=== PATIENT | male | born 1940 | race Caucasian/White ===

== ENCOUNTER 2017-04-09 15:19 | Inpatient (IN) | payer OTHER ==
--- NOTE | ~2017-04-09 | DS ---
Discharge Summary [facility] [address] [place]. [address] NAME: ANNE UNGER : 38 STATUS : DIS IN PAT#: [id number] AGE: 76 ADM/REG DATE : 04/09/17 MR#: [id number] REPORT SERV DATE: 04/15/17 DICTATED BY: RILEY MCINTOSH DATE: 04/14/17 REPORT STATUS : Draft TRANSCRIBED BY: MODL DATE: 04/14/17 ADMISSION DATE: 04/09/2017 DISCHARGE DATE: 04/14/2017 DISCHARGE DIAGNOSES: 1. Intractable nausea and vomiting. 2. Chest pain likely secondary to lung mass. 3. 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 4. Rheumatoid arthritis. 5. Hypothyroidism. 6. Chronic obstructive pulmonary disease. 7. Gastroesophageal reflux disease. 8. Anxiety. CONSULTANTS: 1. Dr. Lemons of Pulmonology. 2. Dr. Vince Melgar of Oncology. PROCEDURES: CT-guided biopsy of liver lesion on 04/12/2017. HOSPITAL COURSE: This is a 76-year-old gentleman who was admitted to the hospital with intractable nausea and vomiting who was also found to have a lung mass as well as liver mass. For details, please refer to excellent H and P dictated by Dr. Arenas. In summary, the patient clinically improved over the first couple of days of hospital stay and the main issue became liver mass and a lung mass. It was felt that the patient probably had primary lung mass with metastatic disease to the liver. The patient was seen by Pulmonology for potential bronchoscopy who actually recommended getting a CT-guided biopsy of the liver lesion. This was performed on 04/12/2017 with the preliminary pathology suggesting malignancy. Final pathology is still pending at this time. The patient was also seen by Dr. Vince Melgar from [facility] who has recommended outpatient followup for the final pathology result and treatment options. The patient is now being discharged home in stable condition to be closely followed as an outpatient. DISPOSITION: Home. MEDICATIONS: No medication changes except for Mucinex for cough and small dose hydrocodone for control of chest pain that was thought to be related to the lung mass. FOLLOWUP: 1. Please follow up with PCP in the next one to two weeks. 2. Please follow up with [facility] as instructed. Total of 25 minutes spent in coordinating this patient's discharge today. DICTATED BY: Riley Mcintosh MD Discharge Summary [place] [id number] [facility] [address] NAME: ANNE UNGER : 38 STATUS : DIS IN PAT#: [id number] AGE: 76 ADM/REG DATE : 04/09/17 MR#: [id number] REPORT SERV DATE: 04/15/17 DICTATED BY: RILEY MCINTOSH DATE: 04/14/17 REPORT STATUS : Draft TRANSCRIBED BY: JAYME DATE: 04/14/17 [facility]/JAYME Riley Mcintosh MD / [id number] CC: MD Nakita Ocampo
--- NOTE | ~2017-04-09 | CN ---
Consultation Report [address] [place]. [address] NAME: ANNE UNGER : 38 STATUS : ADM IN PAT#: [id number] AGE: 76 ADM/REG DATE : 04/09/17 MR#: [id number] REPORT SERV DATE: 04/10/17 DICTATED BY: OLIVIA FLYNN DATE: 04/10/17 REPORT STATUS : Draft TRANSCRIBED BY: MODGumaro DATE: 04/10/17 CONSULTATION DATE OF CONSULTATION: Dear Dr. Morgan: Thank you for requesting my opinion regarding evaluation and management of Mr. Anne Unger's left-sided lung mass and liver lesions. Mr. Unger is a 76-year-old gentleman with a significant past medical history of heavy tobacco abuse, COPD, rheumatoid arthritis, hypothyroidism, chronic back pain, GERD, and anxiety. The patient presented to [facility] ER with several episodes of diarrhea, vomiting, and poor p.o. intake. He currently denies any fevers, chills, night sweats, nausea, vomiting, weight loss, weight gain, or hemoptysis. He has complained of vague left-sided chest discomfort that has been ongoing for several weeks. The patient also underwent workup in [place], [place], and had a CT scan of the chest that apparently demonstrated, as per verbal report, a left lung mass and two liver spots. REVIEW OF SYSTEMS: A detailed 14-point review of systems was completed. Pertinent positives and negatives are listed above. ALLERGIES: NO KNOWN DRUG ALLERGIES. HOME MEDICATIONS: Reviewed and located in the paper chart. PAST MEDICAL HISTORY: 1. RA. 2. COPD. 3. Hypothyroidism. 4. Chronic back pain. 5. GERD. 6. Anxiety. PAST SURGICAL HISTORY: As above. SOCIAL HISTORY: The patient has a 17-zdku-[id number]-year smoking history. He denies any significant alcohol or illicit drug abuse. FAMILY HISTORY: Coronary artery disease. PHYSICAL EXAMINATION: VITAL SIGNS: Afebrile, T. current 99.2, pulse of 82, respiratory rate 20, room air 95%, and blood pressure 160/72. Consultation Report [address] [place]. [address] NAME: ANNE UNGER : 38 STATUS : ADM IN PAT#: [id number] AGE: 76 ADM/REG DATE : 04/09/17 MR#: [id number] REPORT SERV DATE: 04/10/17 DICTATED BY: OLIVIA FLYNN DATE: 04/10/17 REPORT STATUS : Draft TRANSCRIBED BY: JAYME DATE: 04/10/17 GENERAL: In no acute distress. Able to communicate in full paragraphs at a time. Barrel- chested, pleasant. HEENT: Normocephalic and atraumatic. Pupils are equal, round, and reactive to light and accommodation. Posterior oropharynx is clear. NECK: No JVD. No LAD. Trachea midline. CARDIOVASCULAR: Regular rate and rhythm. S1 and S2 present. LUNGS: Clear to auscultation bilaterally. ABDOMEN: Nontender, nondistended. Soft. Positive bowel sounds. EXTREMITIES: No clubbing, cyanosis, or edema. SKIN: No rash, lesions, or ulcers. PSYCHIATRIC: Alert and oriented x3. Appropriate mood and affect. Appropriate insight and judgment. NEUROLOGIC: 5/5 strength in upper and lower extremities. Cranial nerves II through XII intact. Gait not tested. DTRs not performed. DIAGNOSTIC STUDIES: Chest x-ray, opacity in the left lung base, measuring 4 cm. COPD. This chest x-ray was personally reviewed by me. I agree with the above interpretation. ASSESSMENT AND PLAN: Mr. Anne Unger is an extremely pleasant 76-year-old gentleman with a significant past medical history of heavy tobacco abuse and chronic obstructive pulmonary disease, who presents to [facility] with nausea and vomiting. The patient also has vague left-sided chest discomfort for the past several weeks and had workup performed at [place], [place]. He had a CT scan of the chest, and as per verbal report from the patient, he had a left-sided lung mass as well as two spots in the liver. He has not had a biopsy. The clinical and radiographic presentation is most consistent with left lung mass and liver lesions consistent with potential primary bronchogenic carcinoma with metastatic disease. At this point, without a CT scan of the chest, it is difficult to decide which is the best route for biopsy. If the patient has easily accessible liver lesions, a CT-guided FNA would be appropriate. However, if the patient has airway compromise or only lung disease with simple benign liver cysts, bronchoscopy would be more appropriate. RECOMMENDATIONS: Summary of my recommendations at this point are as follows: 1. The patient does not have any evidence of an acute exacerbation of COPD. 2. Smoking cessation counseling performed for greater than 10 minutes. 3. A repeat CT scan of the chest without contrast to reassess both the liver lesions and the lung mass. 4. Further recommendations pending CT scan of the chest. Thank you for allowing me to participate in Mr. Unger's care. Consultation Report [address] [facility] [address] NAME: ANNE UNGER : 38 STATUS : ADM IN PAT#: [id number] AGE: 76 ADM/REG DATE : 04/09/17 MR#: [id number] REPORT SERV DATE: 04/10/17 DICTATED BY: OLIVIA FLYNN DATE: 04/10/17 REPORT STATUS : Draft TRANSCRIBED BY: JAYME DATE: 04/10/17 [facility]/JAYME Olivia Flynn M.D. / [id number] CC: MD Nakita Carrasquillo
--- NOTE | ~2017-04-09 | HP ---
History And Physical [place] [address] [facility]. [address] NAME: ANNE UNGER : 38 STATUS : ADM IN [facility]#: [id number] AGE: 76 ADM/REG DATE : 04/09/17 MR#: [id number] REPORT SERV DATE: 04/09/17 DICTATED BY: JAN MIRANDA DATE: 04/09/17 REPORT STATUS : Draft TRANSCRIBED BY: MODGumaro DATE: 04/09/17 DATE OF ADMISSION: 04/09/2017 CHIEF COMPLAINT: Nausea and vomiting. HISTORY OF PRESENT ILLNESS: This is a 76-year-old man with past medical history of hypothyroidism and RA, comes into the ED complaining of nausea and vomiting for the last two days. The patient reports several episodes of diarrhea and vomiting, not able to eat. Denies any hemoptysis, melena, or hematochezia. The patient reports chest pain for the last three weeks. Coincidentally, he was found to have a lung mass three weeks ago. The patient is supposed to have workup done as an outpatient, but would like for a workup to be done while in-house. Currently, the patient denies diaphoresis, shortness of breath, palpitations, fevers, chills, orthopnea, or lower extremity swelling. The patient was evaluated in the emergency room, found to have mild dehydration and mild hyperkalemia. Hospitalist is called for further inpatient management. ALLERGIES: NO KNOWN DRUG ALLERGIES. PAST MEDICAL HISTORY: 1. RA. 2. COPD. 3. Hypothyroidism. 4. Chronic back pain. 5. GERD. 6. Anxiety. SOCIAL HISTORY: Denies any alcohol, tobacco, or illicit drug use. FAMILY HISTORY: Positive for coronary artery disease. REVIEW OF SYSTEMS: Twelve-point system reviewed, otherwise negative per HPI. PHYSICAL EXAMINATION: VITAL SIGNS: Temperature 98.2, heart rate 90, blood pressure 118/60, respiratory rate 20, O2 saturation 97 on room air. GENERAL: No acute distress. HEENT: EOMI, PERRLA, nonicteric sclerae, nonerythematous pharynx. NECK: Supple. No JVD. No lymphadenopathy. RESPIRATORY: Clear to auscultation bilaterally. No wheezes or crackles. CARDIOVASCULAR: Regular rate and rhythm. No murmurs, rubs, or gallops. ABDOMEN: Bowel sounds positive. Nontender. Nondistended. No rebound or guarding. EXTREMITIES: No edema or cyanosis. NEUROLOGICAL: Nonfocal. LABORATORY DATA: WBC of 10.3, hemoglobin 13.2, hematocrit 40, platelets 248. INR 1.3. History And Physical [address] [address] NAME: ANNE UNGER : 38 STATUS : ADM IN [facility]#: [id number] AGE: 76 ADM/REG DATE : 04/09/17 MR#: [id number] REPORT SERV DATE: 04/09/17 DICTATED BY: JAN MIRANDA DATE: 04/09/17 REPORT STATUS : Draft TRANSCRIBED BY: JAYME DATE: 04/09/17 Sodium 139, potassium 3.3, chloride 99, bicarb 28, BUN 25, creatinine , glucose 113, magnesium 1.9. Troponin 0.02. EKG without evidence of acute coronary syndrome. ASSESSMENT: 1. Gastroenteritis, likely viral. 2. Chest pain, likely secondary to lung mass. 3. Lung mass. 4. Possible liver metastasis. 5. Rheumatoid arthritis. 6. Hypothyroidism. 7. Chronic obstructive pulmonary disease without exacerbation. 8. Gastroesophageal reflux disease. 9. Anxiety. PLAN: The patient will be admitted to telemetry. Consult Pulmonary for further evaluation and management of lung mass. IV fluids. Appropriate home medications. Supportive treatment. Further evaluation and management per clinical course. DVT prophylaxis, SCDs. GI prophylaxis, PPI. CODE STATUS: Full code. Total time for history and physical, 35 minutes. TLV/SACHIL Elizabeth Arenas MD / [id number] CC: MD Nakita Carrasquillo
--- NOTE | ~2017-04-09 | CN ---
Consultation Report [facility] [address] [place]. [address] NAME: ANNE UNGER : 38 STATUS : ADM IN PAT#: [id number] AGE: 76 ADM/REG DATE : 04/09/17 MR#: [id number] REPORT SERV DATE: 04/14/17 DICTATED BY: VINCE TREJO DATE: 04/13/17 REPORT STATUS : Draft TRANSCRIBED BY: MODL DATE: 04/13/17 CONSULTATIVE NOTE DATE OF CONSULTATION: 04/13/2017 REASON FOR CONSULTATION: Suspected metastatic lung cancer. HISTORY: Mr. Unger is a 76-year-old man with [id number] history of cigarette smoking, also history of hypothyroidism and rheumatoid arthritis. He was admitted here on 04/09/2017 through the emergency department with complaints of nausea and vomiting over couple of days and some intermittent left lower chest/epigastric pain. He lost about 6 pounds of weight over a month prior to presentation, he was not having any coughing of blood or any vomiting of blood. No visible blood in bowel movements. He denied any history of liver disease or right upper quadrant pain. His clinical impression on admission was gastroenteritis, likely some reflux related chest pain with suspicion of lung cancer based upon imaging prior to presentation. A CT scan of the chest was done here confirming a large mass in the left lung about 6 cm with a contralateral lung nodule, and multiple low-density lesions in the liver of largest measuring over 3 cm in diameter, which is consistent with metastatic disease. He underwent a CT-guided biopsy of liver lesion on 04/12/2017 with preliminary pathology positive for malignancy, but pending special stains regarding what type of cancer. PAST MEDICAL AND SURGICAL HISTORY: Significant for chronic nicotine addiction, some COPD related to this, history of rheumatoid arthritis, hypothyroidism, chronic back pain, gastroesophageal reflux, anxiety, neurosis. MEDICATIONS: As per medication sheet. SOCIAL HISTORY: He is retired and lives in [place], [place]. Denies any alcohol or illicit drug use. A long-term cigarette smoker of [id number] smoking up until just prior to this admission. FAMILY HISTORY: Uncle had some type of bone cancer and no family history of lung cancer. Positive for coronary artery disease. REVIEW OF SYSTEMS: A 13-point review of systems as per HPI, otherwise unremarkable. PHYSICAL EXAMINATION: VITAL SIGNS: He is currently afebrile with normal vital signs. GENERAL: A well-developed elderly man, in no acute distress. Alert and oriented x3. HEENT: With NCAT and sclerae anicteric. His oropharynx is edentulous. NECK: No JVD or adenopathy. HEART: Regular rate and rhythm without murmurs. LUNGS: With bilateral mild expiratory rhonchi, some coarse crackles in the left lower lobe. Consultation Report [address] [place]. [address] NAME: ANNE UNGER : 38 STATUS : ADM IN PAT#: [id number] AGE: 76 ADM/REG DATE : 04/09/17 MR#: [id number] REPORT SERV DATE: 04/14/17 DICTATED BY: VINCE TERJO DATE: 04/13/17 REPORT STATUS : Draft TRANSCRIBED BY: JAYME DATE: 04/13/17 No rubs. ABDOMEN: Moderately obese. Active bowel sounds. Soft and nontender. No palpable organomegaly or masses. No tenderness of the right upper quadrant specifically. EXTREMITIES: Without cyanosis, clubbing, or edema. Pulses intact distally. LYMPHATIC: Lymph node survey without palpable cervical, supraclavicular, axillary, inguinal nodes. NEUROLOGIC: Examination is grossly intact with the patient sitting up in bed. SKIN: Reveals benign-appearing moles with a larger 2 x 4 cm variably pigmented mole in the midback with well-demarcated margins consistent with congenital nevus. PLAN/ASSESSMENT: Mr. Unger is a man presenting with a large left lung mass with multiple liver lesions and a contralateral right lung nodule, all suggestive of metastatic lung cancer. Liver biopsy was done with preliminary report consistent with malignancy, but final pathology pending. We will await the final pathology report prior to making further recommendations. Certainly, if non-small cell lung cancer is detected, then PD-L1 testing and genomic profiling will be recommended. Given the fact that he lives in [place], [place], we will arrange for followup with one of our partners in [place] either Dr. Márquez or Dr. Deshpande. The patient agrees to proceed as recommended. GI/JAYME Vince Trejo M.D. / [id number] CC: MD Nakita Ocampo M.D.
[2017-04-09 14:19] LABS: BASOPHILS 0.7 %; BASOPHILS ABSOLUTE 0.07 10/3/uL (0.0-0.16); EOSINOPHILS 1.8 %; EOSINOPHILS ABSOLUTE 0.19 10/3/uL (0.0-0.53); ER CBC TAT 0 Hrs 09 Mins; HEMOGLOBIN 13.2 g/dL (13.6-17.8); IMMATURE GRANULOCYTES 0.4 %; IMMATURE GRANULOCYTES ABSOLUTE 0.04 10/3/uL (0.0-0.11); LYMPHOCYTES 26.5 %; LYMPHOCYTES ABSOLUTE 2.73 10/3/uL (0.67-4.30); MANUAL DIFF NO %; MEAN CORPUSCULAR HEMOGLOB 29.4 pg (26.0-34.0); MEAN CORPUSCULAR VOLUME 89.1 fL (80-100); MEAN PLATELET VOLUME 9.7 fL (9.2-13.0); MONOCYTES 8.2 %; MONOCYTES ABSOLUTE 0.85 10/3/uL (0.21-1.20); NEUTROPHILS 62.4 %; NEUTROPHILS ABSOLUTE 6.44 10/3/uL (2.02-8.40); PLATELET COUNT 248 10/3/uL (150-400); RED CELL COUNT 4.49 10/6/uL (4.7-6.1); WHITE BLOOD CELLS 10.3 10/3/uL (4.5-10.5)
[2017-04-09 14:29] LABS: INTERNATIONAL NORMAL RATI 1.3 UNITS (-); PARTIAL THROMBO TIME 30.4 SEC (22.5-37.2); PROTIME (NOT ORD) 16.2 SEC (12.0-14.5)
[2017-04-09 14:35] LABS: ALBUMIN 3.1 G/DL (3.5-5.0); CHEST PAIN PROFILE TAT 0 Hrs 25 Mins; CHLORIDE, SERUM 99 MMOL/L (96-112); CO2 (CARBON DIOXIDE) 28 MMOL/L (24-34); CREATININE 1.14 MG/DL (0.70-1.30); DIRECT BILIRUBIN 0.1 MG/DL (0.0-0.4); GFR AFRICAN AMERICAN 71 ML/MIN (>=60); GFR NON AFRICAN AMERICAN 61 ML/MIN (>=60); GLUCOSE, SERUM 113 MG/DL (60-99); INDIRECT BILIRUBIN(NOT ORDER) 0.4 MG/DL (0.1-0.9); POTASSIUM, SERUM 3.3 MMOL/L (3.5-5.3); SGOT(AST) 25 U/L (5-40); SGPT(ALT) 18 U/L (5-65); SODIUM, SERUM 139 MMOL/L (135-148); TOTAL BILIRUBIN 0.5 MG/DL (0-1.2); TOTAL PROTEIN 8.1 G/DL (6.0-8.5); TROPONIN I 0.02 NG/ML (<0.05)
[2017-04-09 14:36] LABS: ALKALINE PHOSPHATASE 135 U/L (45-117); BUN (BLOOD UREA NITROGEN) 25 MG/DL (6-23); CALCIUM, SERUM 9.6 MG/DL (8.5-10.4)
[2017-04-09 14:47] LABS: ASCORBIC ACID (UR NOT ORDER) NEG (NEG); BILIRUBIN, URINE NEGATIVE (NEG); ER URINALYSIS TAT 0 Hrs 09 Mins; KETONE, URINE TRACE MG/DL (NEG); LEUKOCYTE ESTERASE(NOT OR NEG (NEG); NITRITE (URINE) NEG (NEG); WBC (NOT ORDERED) (RFLEX) 1 (0-5)
[~2017-04-09 15:19] MED LIST: ALEVE220 MG PO; ASAB PO; LOP25 PO; MONOKET20 PO; NEUR300 PO; NITROSTAT0.4 MG SL; NORCO1 TAB PO; P20 PO; PROAIR HFA INH; PROTONIX20 MG PO; PROVENTSOL INH; XANAX1 MG PO; ZOCOR40 PO
[2017-04-09] MEDS ORDERED: Z-PAK PO (15:44)
[2017-04-09] MEDS ORDERED: NEUR300 PO (15:45)
[2017-04-09] MEDS ORDERED: LEVOTHYROXIN100 MCG PO (15:46)
[2017-04-09] MEDS ORDERED: PROTONIX PO (15:46)
[2017-04-09] MEDS ORDERED: BUSPAR10 PO (15:46)
[2017-04-09] MEDS ORDERED: MONOKET20 PO (15:46)
[2017-04-09] MEDS ORDERED: PROAIR HFA INH (15:47)
[2017-04-09 21:05] LABS: POTASSIUM, SERUM 3.9 MMOL/L (3.5-5.3); TROPONIN I 0.03 NG/ML (<0.05)
[2017-04-09 22:27] LABS: CPK 30 U/L (0-200); TROPONIN I 0.02 NG/ML (<0.05)
[2017-04-09 22:28] LABS: CK-MB 1.2 NG/ML
[2017-04-10 06:35] LABS: CALCIUM, SERUM 8.7 MG/DL (8.5-10.4); CHLORIDE, SERUM 107 MMOL/L (96-112); CO2 (CARBON DIOXIDE) 24 MMOL/L (24-34); CREATININE 0.91 MG/DL (0.70-1.30); GFR AFRICAN AMERICAN 93 ML/MIN (>=60); GFR NON AFRICAN AMERICAN 80 ML/MIN (>=60); SODIUM, SERUM 138 MMOL/L (135-148)
[2017-04-10 06:38] LABS: BUN (BLOOD UREA NITROGEN) 18 MG/DL (6-23)
[2017-04-10 06:39] LABS: GLUCOSE, SERUM 98 MG/DL (60-99); POTASSIUM, SERUM 4.2 MMOL/L (3.5-5.3)
[2017-04-10 08:58] LABS: BASOPHILS 1.5 %; EOSINOPHILS 4.7 %; EOSINOPHILS ABSOLUTE 0.32 10/3/uL (0.0-0.53); HEMOGLOBIN 12.1 g/dL (13.6-17.8); IMMATURE GRANULOCYTES 0.4 %; IMMATURE GRANULOCYTES ABSOLUTE 0.03 10/3/uL (0.0-0.11); LYMPHOCYTES 19.3 %; LYMPHOCYTES ABSOLUTE 1.32 10/3/uL (0.67-4.30); MEAN CORPUS HGB CONC 33.8 g/dL (32.0-36.0); MEAN CORPUSCULAR HEMOGLOB 29.8 pg (26.0-34.0); MEAN CORPUSCULAR VOLUME 88.2 fL (80-100); MEAN PLATELET VOLUME 10.2 fL (9.2-13.0); MONOCYTES 10.5 %; MONOCYTES ABSOLUTE 0.72 10/3/uL (0.21-1.20); NEUTROPHILS 63.6 %; NEUTROPHILS ABSOLUTE 4.34 10/3/uL (2.02-8.40); NUCLEATED RED BLOOD CELLS 1.1 /100WBC (0-0); PLATELET COUNT 233 10/3/uL (150-400); RBC DISTRIBUTION WIDTH 16.3 % (12.0-16.0); RED CELL COUNT 4.06 10/6/uL (4.7-6.1); WHITE BLOOD CELLS 6.8 10/3/uL (4.5-10.5)
[2017-04-10 08:59] LABS: HEMATOCRIT 35.8 % (40.0-51.0); MANUAL DIFF NO %
[2017-04-11 09:48] LABS: T PROTEIN (ELECT)(NOT OR 6.2 G/DL (6.0-8.5)
[2017-04-11 10:04] LABS: FERRITIN 91 NG/ML (26-388); IRON BINDING CAPACITY 269 MCG/DL (250-450); IRON, SERUM 31 MCG/DL (35-150)
[2017-04-12 05:17] LABS: BUN (BLOOD UREA NITROGEN) 17 MG/DL (6-23); CALCIUM, SERUM 8.4 MG/DL (8.5-10.4); CHLORIDE, SERUM 106 MMOL/L (96-112); CO2 (CARBON DIOXIDE) 25 MMOL/L (24-34); CREATININE 0.99 MG/DL (0.70-1.30); GFR AFRICAN AMERICAN 84 ML/MIN (>=60); GFR NON AFRICAN AMERICAN 73 ML/MIN (>=60); GLUCOSE, SERUM 100 MG/DL (60-99); POTASSIUM, SERUM 3.5 MMOL/L (3.5-5.3); SODIUM, SERUM 137 MMOL/L (135-148)
[2017-04-12 05:25] LABS: MEAN CORPUS HGB CONC 33.3 g/dL (32.0-36.0); MEAN CORPUSCULAR HEMOGLOB 29.6 pg (26.0-34.0); MEAN CORPUSCULAR VOLUME 88.9 fL (80-100); MEAN PLATELET VOLUME 9.6 fL (9.2-13.0); RBC DISTRIBUTION WIDTH 16.3 % (12.0-16.0); RED CELL COUNT 3.71 10/6/uL (4.7-6.1)
[2017-04-12 05:27] LABS: MANUAL DIFF YES %; PLATELET COUNT 148 10/3/uL (150-400); WHITE BLOOD CELLS 3.2 10/3/uL (4.5-10.5)
[2017-04-12 05:35] LABS: ANISOCYTOSIS 1+ (5-10/OIF) (0-5/OIF); BAND NEUTROPHILS 7 %; EOSINOPHILS 11 %; EOSINOPHILS ABSOLUTE (CALC) 0.35 10/3/uL (0.0-0.53); LYMPHOCYTES 44 %; LYMPHOCYTES ABSOLUTE (CALC) 1.41 10/3/uL (0.67-4.30); MONOCYTES 9 %; MONOCYTES ABSOLUTE (CALC) 0.29 10/3/uL (0.21-1.20); NEUTROPHILS ABSOLUTE (CALC) 1.15 10/3/uL (2.02-8.40); PLATELET ESTIMATE SLT DEC (ADEQUATE); SEGMENTED NEUTROPHIL (0) 29 %; TOTAL NUCLEATED CELLS 100
[2017-04-12 10:51] LABS: A/G 0.89 RATIO (0.9-2.10); ALB RELATIVE % 47.2 % (60.0-89.0); ALBUMIN (ELECTRO) 2.93 GM/DL (3.2-5.5); ALPHA 1 (ELECTRO) 0.33 GM/DL (0.1-0.4); ALPHA 1 RELAT % (NOT ORD) 5.4 % (1.0-4.0); ALPHA 2 (ELECTRO) 0.97 GM/DL (0.5-1.10); ALPHA 2 RELAT % 15.7 % (4.5-26.0); BETA GLOBULIN (SPE) 0.63 GM/DL (0.60-1.30); BETA RELATIVE % 10.2 % (9.0-22.0); GAMMA GLOBULIN (SPE) 1.33 G/DL (0.70-1.60); GAMMA RELAT % 21.5 % (6.0-22.0)
[2017-04-14 04:30] LABS: BASOPHILS 1.2 %; BASOPHILS ABSOLUTE 0.05 10/3/uL (0.0-0.16); EOSINOPHILS 8.6 %; EOSINOPHILS ABSOLUTE 0.35 10/3/uL (0.0-0.53); HEMATOCRIT 33.6 % (40.0-51.0); HEMOGLOBIN 11.2 g/dL (13.6-17.8); IMMATURE GRANULOCYTES 0.5 %; IMMATURE GRANULOCYTES ABSOLUTE 0.02 10/3/uL (0.0-0.11); LYMPHOCYTES 46.7 %; LYMPHOCYTES ABSOLUTE 1.89 10/3/uL (0.67-4.30); MEAN CORPUS HGB CONC 33.3 g/dL (32.0-36.0); MEAN CORPUSCULAR HEMOGLOB 29.8 pg (26.0-34.0); MEAN CORPUSCULAR VOLUME 89.4 fL (80-100); MEAN PLATELET VOLUME 10.3 fL (9.2-13.0); MONOCYTES 13.1 %; MONOCYTES ABSOLUTE 0.53 10/3/uL (0.21-1.20); NEUTROPHILS 29.9 %; NEUTROPHILS ABSOLUTE 1.21 10/3/uL (2.02-8.40); RBC DISTRIBUTION WIDTH 16.4 % (12.0-16.0); RED CELL COUNT 3.76 10/6/uL (4.7-6.1); WHITE BLOOD CELLS 4.1 10/3/uL (4.5-10.5)
[2017-04-14 04:32] LABS: MANUAL DIFF NO %; PLATELET COUNT 204 10/3/uL (150-400)
[2017-04-14 04:50] LABS: BUN (BLOOD UREA NITROGEN) 15 MG/DL (6-23); CALCIUM, SERUM 8.5 MG/DL (8.5-10.4); CHLORIDE, SERUM 105 MMOL/L (96-112); CO2 (CARBON DIOXIDE) 28 MMOL/L (24-34); CREATININE 1.04 MG/DL (0.70-1.30); GFR AFRICAN AMERICAN 79 ML/MIN (>=60); GFR NON AFRICAN AMERICAN 68 ML/MIN (>=60); SODIUM, SERUM 137 MMOL/L (135-148)
[2017-04-14 04:54] LABS: GLUCOSE, SERUM 106 MG/DL (60-99)
[2017-04-14 08:02] LABS: CK-MB < 0.5 NG/ML; CPK 29 U/L (0-200); TROPONIN I 0.04 NG/ML (<0.05)
[2017-04-14] MEDS ORDERED: NORCO1 TA1 PO (10:05)
[2017-04-14] MEDS ORDERED: MUCINEX600 MG PO (13:27)
== END 2017-04-14 13:54 | disposition home or self-care (01) | DRG 436 ==
LOC: ER 15:19 → 6NO 16:18 → SDC/OF 04-12 09:59 → 6NO 04-12 10:00
PROVIDERS: Internal Medicine; Physician Assistant
PROC: 0FB13ZX Excision of Right Lobe Liver, Percutaneous Approach, Diagnostic (ICD-10-PCS; principal; 2017-04-12)
DX: C78.7 Secondary malignant neoplasm of liver and intrahepatic bile duct (principal); C34.32 Malignant neoplasm of lower lobe, left bronchus or lung; J84.9 Interstitial pulmonary disease, unspecified; J44.9 Chronic obstructive pulmonary disease, unspecified; M06.9 Rheumatoid arthritis, unspecified; A08.4 Viral intestinal infection, unspecified; E03.9 Hypothyroidism, unspecified; F17.210 Nicotine dependence, cigarettes, uncomplicated; M54.9 Dorsalgia, unspecified; K21.9 Gastro-esophageal reflux disease without esophagitis; F41.9 Anxiety disorder, unspecified
CPT/HCPCS: 47000; 71020; 71250; 77012; 80048; 80076; 81001; 82150; 82550; 82553; 82607; 82728; 83540; 83550; 83615; 83690; 83735; 84132; 84155; 84165; 84484; 85025; 85610; 85730; 88307; 88333; 88341; 88342; 88344; 93005; 96361; 96374; 99285; A9270-GY; J2250; J2405; J3010